=== PATIENT | male | born 1990 | race American Indian/Alaskan Native ===

== ENCOUNTER 2016-09-30 13:13 | Emergency (ER) | payer OTHER ==
--- NOTE | 2016-09-30 15:52 | Emergency Department Report ---
ED Headache HPI - General Chief Complaint: Headache Stated Complaint: HEADACHE AND SORETHROAT Time Seen by Provider: 09/30/16 15:29 Source: patient - History of Present Illness Timing/Duration: 1 week Quality: moderate Recent Head Trauma: occasional headaches Associated Symptoms: fever/chills Allergies/Adverse Reactions: Allergies No Known Allergies Allergy (Verified 09/30/16 13:51) Home Medications: Ambulatory Orders Amoxicillin [Amoxicillin TAB] 875 mg PO BID #20 tablet 09/30/16 ED Review of Systems ROS: Stated complaint: HEADACHE AND SORETHROAT Other details as noted in HPI Patient complaining of sore throat fever and chills for the past one week. Patient denies neck pain, photophobia, shortness of breath, nausea vomiting, abdominal pain. She also denies any focal neuro deficits. But does relate that he has a headache that is mild in nature. Constitutional: chills, fever, malaise Eyes: denies: eye pain, eye discharge, vision change ENT: throat pain Respiratory: denies: cough, orthopnea, shortness of breath, SOB with exertion, SOB at rest Cardiovascular: denies: chest pain, palpitations Gastrointestinal: denies: abdominal pain, nausea, vomiting Skin: denies: rash, lesions Neurological: headache. denies: numbness, paresthesias, confusion ED Past Medical Hx - Past Medical History Previous Medical History?: No - Surgical History Additional Surgical History: tonsillectomy - Social History Smoking Status: Never Smoker Substance Use Type: Alcohol - Medications Home Medications: Home Medications Medication Instructions Recorded Confirmed Last Taken Type Amoxicillin [Amoxicillin TAB] 875 mg PO BID #20 tablet 09/30/16 Unknown Rx ED Physical Exam - General Limitations: No Limitations General appearance: alert, in no apparent distress - Head Head exam: Present: atraumatic, normocephalic - Eye Eye exam: Present: normal appearance, PERRL, EOMI - ENT ENT exam: Present: normal exam, mucous membranes moist, other (pharyngeal erythema) - Neck Neck exam: Present: normal inspection. Absent: tenderness, meningismus, full ROM, lymphadenopathy - Respiratory Respiratory exam: Present: normal lung sounds bilaterally. Absent: respiratory distress - Cardiovascular Cardiovascular Exam: Present: regular rate - Neurological Exam Neurological exam: Present: alert, oriented X3, CN II-XII intact - Skin Skin exam: Present: warm, dry, intact, normal color, rash ED Course Vital Signs 09/30/16 13:52 Temperature 98.2 F Pulse Rate 83 Respiratory 20 Rate Blood Pressure 130/59 O2 Sat by Pulse 99 Oximetry Critical care attestation.: If time is entered above; I have spent that time in minutes in the direct care of this critically ill patient, excluding procedure time. ED Disposition Clinical Impression: Pharyngitis Disposition: DISCHARGED TO HOME OR SELFCARE Is pt being admited?: No Condition: Stable Instructions: Pharyngitis (ED) Additional Instructions: Take 875 mg Amoxicillin 2x daily for 10 days. Drink lots of fluids. Prescriptions: Amoxicillin [Amoxicillin TAB] 875 mg PO BID #20 tablet Referrals: PRIMARY CARE, [Primary Care Provider] - 3-5 Days Forms: Work/School Release Form(ED)
[2016-09-30 16:01] VITALS: BP 126/62
--- NOTE | 2016-09-30 16:21 | Emergency Department Report ---
Entered by PONCHO SIGALA, acting as scribe for RONALD RESENDEZ PA. ED Headache HPI - General Chief Complaint: Headache Stated Complaint: HEADACHE AND SORETHROAT Time Seen by Provider: 09/30/16 15:29 Source: patient Exam Limitations: no limitations - History of Present Illness Initial Comments: 26 year old male with no significant PMHx presents to the ED c/o intermittent headaches that began two weeks ago. Associated symptoms includes sore throat for a week, nasal congestion, but he denies nausea, vomiting, fever, and chills. Pt states that he took [id number] sinus medication with no relief. Rates pain a 4 out of 10 in severity. Timing/Duration: other (2 weeks) Quality: mild Recent Head Trauma: no recent headache/trauma Modifying Factors: worse with: other ([id number] sinus medication with no relief) Associated Symptoms: nasal congestion, other (sore throat). denies: fever/ chills, nausea/vomiting Allergies/Adverse Reactions: Allergies No Known Allergies Allergy (Verified 09/30/16 13:51) Home Medications: Ambulatory Orders Amoxicillin [Amoxicillin TAB] 875 mg PO BID #20 tablet 09/30/16 ED Review of Systems Comment: All other systems reviewed and negative Constitutional: denies: chills, fever ENT: throat pain (for one week), congestion Gastrointestinal: denies: nausea, vomiting Neurological: headache (intermittent headaches for two weeks) ED Past Medical Hx - Past Medical History Previous Medical History?: No - Surgical History Additional Surgical History: tonsillectomy - Social History Smoking Status: Never Smoker Substance Use Type: Alcohol - Medications Home Medications: Home Medications Medication Instructions Recorded Confirmed Last Taken Type Amoxicillin [Amoxicillin TAB] 875 mg PO BID #20 tablet 09/30/16 Unknown Rx ED Physical Exam - General Limitations: No Limitations General appearance: alert, in no apparent distress - Head Head exam: Present: atraumatic, normocephalic - Eye Eye exam: Present: normal appearance, PERRL, EOMI - ENT ENT exam: Present: mucous membranes moist - Expanded ENT Exam Expanded Throat exam: Positive: tonsillar erythema, other (tonsillar edema) - Neck Neck exam: Present: normal inspection, full ROM. Absent: meningismus, lymphadenopathy - Respiratory Respiratory exam: Present: normal lung sounds bilaterally. Absent: respiratory distress, wheezes, rales, rhonchi, stridor - Cardiovascular Cardiovascular Exam: Present: regular rate - GI/Abdominal GI/Abdominal exam: Present: soft. Absent: distended, tenderness, guarding, rebound, rigid - Extremities Exam Extremities exam: Present: normal inspection, full ROM - Back Exam Back exam: Present: normal inspection, full ROM - Neurological Exam Neurological exam: Present: alert, oriented X3 - Psychiatric Psychiatric exam: Present: normal affect, normal mood - Skin Skin exam: Present: warm, dry, intact ED Course Vital Signs 09/30/16 09/30/16 13:52 15:56 Temperature 98.2 F Pulse Rate 83 80 Respiratory 20 18 Rate Blood Pressure 130/59 Blood Pressure 126/62 [Left] O2 Sat by Pulse 99 99 Oximetry ED Disposition Clinical Impression: Pharyngitis Disposition: DISCHARGED TO HOME OR SELFCARE Is pt being admited?: No Does the pt Need Aspirin: No Condition: Stable Instructions: Pharyngitis (ED) Additional Instructions: Take 875 mg Amoxicillin 2x daily for 10 days. Drink lots of fluids. Prescriptions: Amoxicillin [Amoxicillin TAB] 875 mg PO BID #20 tablet Referrals: PRIMARY CARE, [Primary Care Provider] - 3-5 Days Forms: Work/School Release Form(ED) This documentation as recorded by the ZAKIYA shah JASMINE,accurately reflects the service I personally performed and the decisions made by me,RONALD RESENDEZ PA.
== END 2016-09-30 15:56 | disposition home or self-care (01) ==
LOC: ED 13:13
DX: J02.9 Acute pharyngitis, unspecified (principal)
CPT/HCPCS: 99282

== ENCOUNTER 2017-08-02 18:05 | Emergency (ER) | payer OTHER ==
[2017-08-02 18:25] VITALS: BP 131/85
== END 2017-08-02 22:00 | disposition left against medical advice (07) ==
LOC: ED 18:05
DX: R07.9 Chest pain, unspecified (principal); Z53.21 Procedure and treatment not carried out due to patient leaving prior to being seen by health care provider
CPT/HCPCS: 93005; 93010